=== PATIENT | female | born 1950 | race Caucasian/White ===

== ENCOUNTER 2017-06-15 10:47 | Day surgery (SDC) | payer OTHER ==
[~2017-06-15] VITALS: Ht 162.6 cm; Wt 65.8 kg
[2017-06-15] MEDS ORDERED: PROPOFOL 200MG/ 20ML VIAL (DIPRIVAN) IV ONE (12:00)
[2017-06-15] MEDS ORDERED: NS IRRIG SOLN 1000 ML IR ONE (12:00)
[2017-06-15] MEDS ORDERED: fentaNYL CITRATE/PF 100 MCG/2 ML AMP IVP ONE (12:00)
[2017-06-15] MEDS ORDERED: SEVOFLURANE 15 MIN GAS INH ONE (12:00)
[2017-06-15] MEDS ORDERED: LR 1,000 ML IV.SOLN IV ONE (12:00)
[2017-06-15] MEDS ORDERED: MIDAZOLAM HCL 5 MG/5 ML VIAL IVP ONE (12:00)
[2017-06-15] MEDS ORDERED: ONDANSETRON HCL 4 MG/2 ML VIAL IVP PRN (12:30)
[2017-06-15] MEDS ORDERED: fentaNYL CITRATE/PF 100 MCG/2 ML AMP IVP PRN ×2 (12:30)
[2017-06-15] MEDS: fentaNYL CITRATE/PF 100 MCG/2 ML AMP ONE ×2 (13:09→13:42)
[2017-06-15 14:27] VITALS: BP_SYST 146
== END 2017-06-15 15:05 | disposition home or self-care (01) ==
LOC: SDS 10:47 → EDSTATUS 12:00 → SDS 15:05
PROVIDERS: ATTEND Orthopaedic Surgery
DX: S52.532A Colles' fracture of left radius, initial encounter for closed fracture (principal); W18.30XA Fall on same level, unspecified, initial encounter; Y93.9 Activity, unspecified; Y92.89 Other specified places as the place of occurrence of the external cause; Y99.9 Unspecified external cause status; Z79.899 Other long term (current) drug therapy; Z98.890 Other specified postprocedural states; Z98.84 Bariatric surgery status; I10 Essential (primary) hypertension; M54.5 Low back pain
CPT/HCPCS: 25605; 76001; C1713; J2250; J2704; J3010; J7120